=== PATIENT | female | born 2000 | race Caucasian/White ===

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

== ENCOUNTER 2018-02-11 15:14 | Emergency (ER) | payer SELFPAY ==
[~2018-02-11] VITALS: Ht 162.6 cm; Wt 49.2 kg
[2018-02-11 15:16] VITALS: BP 111/76
[2018-02-11 16:24] LABS: MICROSCOPIC NOT IND
[2018-02-11 16:28] LABS: CLUE CELLS NONE SEEN (NONE SEEN); WET PREP WBCS FEW (FEW)
[2018-02-11 16:28] LABS: CULTURE INDICATED? NO
== END 2018-02-11 18:05 | disposition left against medical advice (07) ==
LOC: ED 15:45
DX: O26.891 Other specified pregnancy related conditions, first trimester (principal); O98.811 Other maternal infectious and parasitic diseases complicating pregnancy, first trimester; Z3A.10 10 weeks gestation of pregnancy
CPT/HCPCS: 36415; 76801; 81003; 84702; 84703; 87210; 87491; 87591; 87808; 99285

== ENCOUNTER 2018-03-26 18:46 | Emergency (ER) | payer MEDICAID ==
[~2018-03-26] VITALS: Ht 162.6 cm; Wt 51.6 kg
[2018-03-26 18:51] VITALS: BP 135/79
== END 2018-03-26 19:40 | disposition home or self-care (01) ==
LOC: ED 19:00
DX: O26.892 Other specified pregnancy related conditions, second trimester (principal); F17.210 Nicotine dependence, cigarettes, uncomplicated; Z3A.16 16 weeks gestation of pregnancy
CPT/HCPCS: 99284; 99406

== ENCOUNTER 2018-08-12 19:29 | Inpatient (IN) | payer MEDICAID ==
[~2018-08-12] VITALS: Ht 162.6 cm; Wt 60.0 kg
[2018-08-12] MEDS ORDERED: NEWBORN KIT ONE (20:31)
[2018-08-12] MEDS ORDERED: OXYTOCIN 30U/ 0.9% NaCL 500ML 500 ML ONE (20:32)
[2018-08-12] MEDS ORDERED: LIDOCAINE/PF 1%, 30ML ONE (20:32)
[2018-08-12] MEDS ORDERED: MISOPROSTOL 200 MCG TABLET ONE (20:32)
[2018-08-12] MEDS ORDERED: OXYTOCIN 30U/ 0.9% NaCL 500ML 500 ML IV PRN (20:50)
[2018-08-12] MEDS ORDERED: OXYTOCIN 30U/ 0.9% NaCL 500ML 500 ML IV ONE (20:50)
[2018-08-12] MEDS ORDERED: D5%-LACTATED RINGERS 1,000 ML IV SCH (20:50)
[2018-08-12] MEDS ORDERED: AMPICILLIN 1 GM in SODIUM CHLORIDE 0.9% 100 ML IVPB SCH (21:00)
[2018-08-12] MEDS ORDERED: AMPICILLIN 2 GM in SODIUM CHLORIDE 0.9% 100 ML IV ONE (21:00)
[2018-08-12] MEDS ORDERED: FENTANYL PF 100 MCG/2ML IVPush PRN (21:00)
[2018-08-12] MEDS ORDERED: SODIUM CITRATE/CITRIC ACID 30 ML UDC PO PRN (21:00)
[2018-08-12] MEDS ORDERED: TERBUTALINE 1 MG/ML, 1ML IVPush PRN (21:00)
[2018-08-12] MEDS ORDERED: METOCLOPRAMIDE 5 MG/ML, 2ML IVPush PRN (21:00)
[2018-08-12] MEDS ORDERED: FENTANYL PF 100 MCG/2ML IV PRN (21:00)
[2018-08-12] MEDS: LACTATED RINGERS 1,000 ML IV SCH (21:24)
[2018-08-12 21:32] LABS: BASOPHILS # (AUTO) 0.03 x10^3/uL (0-0.3); BASOPHILS % (AUTO) 0 % (0-1); EOSINOPHILS # (AUTO) 0.11 x10^3/uL (0-0.8); EOSINOPHILS % (AUTO) 1 % (1-7); LYMPHOCYTES # (AUTO) 1.75 x10^3/uL (1-6.1); LYMPHOCYTES % (AUTO) 15 % (22-44); MD NO; MEAN CORPUSCULAR HGB CONC 34.4 g/dL (32.4-35.8); MEAN CORPUSCULAR VOLUME 93.1 fL (80-100); MEAN PLATELET VOLUME 8.2 fL (7.4-10.4); MONOCYTES # (AUTO) 0.86 x10^3/uL (0-1.4); MONOCYTES % (AUTO) 8 % (2-9); NEUTROPHILS % (AUTO) 76 % (42-75); PLATELET COUNT 217 x10^3/uL (130-400); RED BLOOD COUNT 3.79 x10^6/uL (3.82-5.3); RED CELL DISTRIBUTION WIDTH 12.3 % (9.6-15.2)
[2018-08-12] MEDS ORDERED: FENTANYL/BUPIV./NS/PF 250 ML EPIDCONT ONE (21:58)
[2018-08-12] MEDS ORDERED: BUPIVACAINE 0.25% ONE (21:58)
[2018-08-12] MEDS ORDERED: LIDOCAINE/PF 1.5%-EPI 1:200K, 30ML ONE (22:06)
[2018-08-13] MEDS: LACTATED RINGERS 1,000 ML IV SCH ×4 (01:00→16:01)
[2018-08-13 01:16] LABS: AMPHETAMINE SCREEN, URINE Negative (Negative); BARBITURATE SCREEN, URINE Negative (Negative); BENZODIAZEPINE SCREEN, URINE Negative (Negative); CANNABINOID SCREEN, URINE Positive (Negative); COCAINE SCREEN, URINE Negative (Negative); METHADONE SCREEN, URINE Negative (Negative); OPIATE SCREEN, URINE Negative (Negative)
[2018-08-13] MEDS ORDERED: FENTANYL/BUPIV./NS/PF 250 ML EPIDCONT SCH (01:41)
[2018-08-13] MEDS ORDERED: EPHEDRINE 50 MG/ML, 1ML IVPush PRN (02:00)
[2018-08-13] MEDS ORDERED: NALOXONE 0.4 MG/ML, 1ML IVPush PRN (02:00)
[2018-08-13] MEDS ORDERED: ONDANSETRON 2MG/ML, 2ML IVPush PRN (02:00)
[2018-08-13] MEDS ORDERED: DIPHENHYDRAMINE 50 MG/ML, 1ML IVPush PRN (02:00)
[2018-08-13] MEDS ORDERED: LACTATED RINGERS 1,000 ML IVBOLUS PRN (02:00)
[2018-08-13] MEDS: OXYTOCIN 30U/ 0.9% NaCL 500ML 500 ML IV SCH ×2 (05:27→15:27)
[2018-08-13] MEDS ORDERED: ACETAMINOPHEN 325 MG TABLET PO PRN (05:30)
[2018-08-13] MEDS ORDERED: METHYLERGONOVINE 0.2 MG/ML IM PRN (05:30)
[2018-08-13] MEDS ORDERED: ONDANSETRON 2MG/ML, 2ML IV PRN (05:30)
[2018-08-13] MEDS ORDERED: MISOPROSTOL 200 MCG TABLET PR PRN (05:30)
[2018-08-13] MEDS ORDERED: IBUPROFEN 600 MG TABLET ONE (07:31)
[2018-08-13] MEDS: IBUPROFEN 600 MG TABLET PO PRN ×2 (07:40→19:35)
[2018-08-13] MEDS: PRENATAL VIT/IRON/FA 1 EACH TABLET PO SCH (09:00)
[2018-08-13 10:58] LABS: MEAN CORPUSCULAR HGB CONC 33.4 g/dL (32.4-35.8); MEAN CORPUSCULAR VOLUME 92.9 fL (80-100); MEAN PLATELET VOLUME 8.4 fL (7.4-10.4); PLATELET COUNT 202 x10^3/uL (130-400); RED CELL DISTRIBUTION WIDTH 12.3 % (9.6-15.2)
[2018-08-13 11:14] LABS: BASOPHILS # (AUTO) 0.02 x10^3/uL (0-0.3); BASOPHILS % (AUTO) 0 % (0-1); EOSINOPHILS # (AUTO) 0.01 x10^3/uL (0-0.8); EOSINOPHILS % (AUTO) 0 % (1-7); LYMPHOCYTES # (AUTO) 1.65 x10^3/uL (1-6.1); LYMPHOCYTES % (AUTO) 11 % (22-44); MD SCAN; MONOCYTES # (AUTO) 0.82 x10^3/uL (0-1.4); MONOCYTES % (AUTO) 6 % (2-9); NEUTROPHILS # (AUTO) 12.17 x10^3/uL (1.8-8.0); NEUTROPHILS % (AUTO) 83 % (42-75)
[2018-08-13 12:30] VITALS: BP 100/64
[2018-08-13 16:31] VITALS: BP 105/70
[2018-08-13 19:20] VITALS: BP 112/76
[2018-08-13] MEDS: DOCUSATE 100 MG CAPSULE PO PRN (19:35)
[2018-08-13] MEDS: OXYcodone/APAP 5/325MG TABLET PO PRN (20:15)
[2018-08-14 01:22] VITALS: BP 99/65
[2018-08-14 05:00] VITALS: BP 108/70
[2018-08-14] MEDS: IBUPROFEN 600 MG TABLET PO PRN ×3 (05:04→18:35)
[2018-08-14 08:40] VITALS: BP 100/65
[2018-08-14] MEDS: DOCUSATE 100 MG CAPSULE PO PRN (08:41)
[2018-08-14] MEDS: PRENATAL VIT/IRON/FA 1 EACH TABLET PO SCH (08:41)
[2018-08-14 20:00] VITALS: BP 106/69
[2018-08-14 21:15] VITALS: BP 106/69
[2018-08-15] MEDS: IBUPROFEN 600 MG TABLET PO PRN (00:50)
[2018-08-15] MEDS: OXYcodone/APAP 5/325MG TABLET PO PRN (02:12)
[2018-08-15 07:45] VITALS: BP 112/81
[2018-08-15] MEDS: PRENATAL VIT/IRON/FA 1 EACH TABLET PO SCH (09:18)
[2018-08-15] MEDS: DOCUSATE 100 MG CAPSULE PO PRN (09:18)
[2018-08-15] MEDS ORDERED: IBUP-1222 PO (13:30)
== END 2018-08-15 15:40 | disposition home or self-care (01) | DRG 807 ==
LOC: LDOP 19:29 → LDIP 20:21 → 2NW 08-13 08:03
PROVIDERS: ADMIT Obstetrics & Gynecology; ATTEND Obstetrics & Gynecology
PROC: 10E0XZZ Delivery of Products of Conception, External Approach (ICD-10-PCS; principal; 2018-08-13)
PROC: 3E0R3BZ Introduction of Anesthetic Agent into Spinal Canal, Percutaneous Approach (ICD-10-PCS; 2018-08-13)
PROC: 00HU33Z Insertion of Infusion Device into Spinal Canal, Percutaneous Approach (ICD-10-PCS; 2018-08-13)
DX: O99.324 Drug use complicating childbirth (principal); Z37.0 Single live birth; F12.90 Cannabis use, unspecified, uncomplicated; F17.200 Nicotine dependence, unspecified, uncomplicated; O99.334 Smoking (tobacco) complicating childbirth; Z3A.36 36 weeks gestation of pregnancy; Z82.3 Family history of stroke; O99.344 Other mental disorders complicating childbirth; F41.9 Anxiety disorder, unspecified; O70.0 First degree perineal laceration during delivery
CPT/HCPCS: 36415; 80307; 85025; 86850; 86900; 89060; G0378; J0290; J3490; J2590; J3010; J7120; Q0114